=== PATIENT | male | born 1970 | race Caucasian/White ===

== ENCOUNTER 2018-10-22 17:30 | Emergency (ER) | payer OTHER ==
[2018-10-22 17:56] VITALS: BP 130/90
--- NOTE | 2018-10-22 18:40 | ED ---
Upper Extremity Pain - HPI Summary HPI Summary: Patient hit left index finger with a hammer prior to coming here; He has gross deformity and flexion at the left PIP joint after the injury. He reports intact sensation. Pain is 5/10. He has no other complaints. - History of Current Complaint Chief Complaint: UCUpperExtremity Stated Complaint: WC - LT POINTER FINGER INJURY Time Seen by Provider: 10/22/18 18:00 - Allergies/Home Medications Allergies/Adverse Reactions: Allergies Allergy/AdvReac Type Severity Reaction Status Date / Time No Known Allergies Allergy Verified 10/22/18 17:56 Home Medications: Home Medications NK [No Home Medications Reported] 10/22/18 [History Confirmed 10/22/18] PMH/Surg Hx/FS Hx/Imm Hx Infectious Disease History: No Infectious Disease History: Denies: Traveled Outside the [place] in Last 30 Days - Family History Known Family History: Positive: None - Social History Occupation: Employed Full-time Alcohol Use: None Substance Use Type: Reports: None Smoking Status (MU): Never Smoked Tobacco Review of Systems Constitutional: Negative Positive: Other - left index finger trauma All Other Systems Reviewed And Are Negative: Yes Physical Exam Triage Information Reviewed: Yes Vital Signs On Initial Exam: Initial Vitals Temp Pulse Resp BP Pulse Ox 98.6 F 83 16 130/90 100 10/22/18 17:52 10/22/18 17:52 10/22/18 17:52 10/22/18 17:52 10/22/18 17:52 Vital Signs Reviewed: Yes Appearance: Positive: Well-Appearing, No Pain Distress Skin: Positive: Warm, Skin Color Reflects Adequate Perfusion Head/Face: Positive: Normal Head/Face Inspection Eyes: Positive: EOMI, JOANNA ENT: Positive: Normal ENT inspection Neck: Positive: Nontender Respiratory/Lung Sounds: Positive: Clear to Auscultation, Breath Sounds Present Cardiovascular: Positive: RRR. Negative: Murmur Abdomen Description: Negative: Distended Musculoskeletal: Positive: Other - left index finger held in flexion at the MP joint and then deformity and rotation of the proximal phalynx and then flexion at the PIP joint. No breaks in the skin. Neurological: Positive: Sensory/Motor Intact, Alert, Oriented to Person Place, Time, CN Intact II-III Psychiatric: Positive: Normal Diagnostics - Vital Signs Vital Signs Temp Pulse Resp BP Pulse Ox 10/22/18 17:52 98.6 F 83 16 130/90 100 - Laboratory Lab Statement: Any lab studies that have been ordered have been reviewed, and results considered in the medical decision making process. - Radiology left index finger/hand Radiology Interpretation Completed By: ED Physician - fracture displaced of prox phalynx. index finger. Course/Dx - Course Course Of Treatment: transfer center [facility] notified of need for hand surgery consult. Patient offered ambulance but states will drive him. No splint applied due to the finger being held in forced flexion at MP and PIP. He is neuro vasc intact at this point. Did not attempt reduction here due to not able to give digital block on this injury and no sedation here. He may need surgery on this. - Diagnoses Provider Diagnoses: Fracture of proximal phalanx of left index finger, Displaced fracture, Hypertension Discharge - Sign-Out/Discharge Documenting (check all that apply): Patient Departure All imaging exams completed and their final reports reviewed: No - Discharge Plan Condition: Good Disposition: TRANS HIGHER LVL OF CARE FAC Patient Education Materials: Finger Fracture (ED) Referrals: No Primary Care Phys,NOPCP [Primary Care Provider] - Additional Instructions: Please go to the [facility] ER at: [address] [place] [address] Immediately after leaving here to see hand surgery. I have called and notified the transfer center there of your coming to the ER. - Billing Disposition and Condition Condition: GOOD Disposition: Trans Higher Lvl of Care Fac
--- NOTE | 2018-10-23 07:27 | UC ---
- Progress Note Progress Note: xray report left hand : IMPRESSION: Displaced fracture involving the proximal phalanx of the left index finger. Course/Dx - Diagnoses Provider Diagnoses: Fracture of proximal phalanx of left index finger, Displaced fracture, Hypertension Discharge - Sign-Out/Discharge Documenting (check all that apply): Patient Departure All imaging exams completed and their final reports reviewed: Yes - Discharge Plan Condition: Good Disposition: TRANS HIGHER LVL OF CARE FAC Patient Education Materials: Finger Fracture (ED) Referrals: No Primary Care Phys,NOPCP [Primary Care Provider] - Additional Instructions: Please go to the [facility] ER at: [address] [place] [address] Immediately after leaving here to see hand surgery. I have called and notified the transfer center there of your coming to the ER. - Billing Disposition and Condition Condition: GOOD Disposition: Trans Higher Lvl of Care Fac
== END 2018-10-22 18:53 | disposition short-term general hospital (02) ==
LOC: UCCORT 17:30
DX: S62.611A Displaced fracture of proximal phalanx of left index finger, initial encounter for closed fracture (principal); W22.8XXA Striking against or struck by other objects, initial encounter; Y92.9 Unspecified place or not applicable
CPT/HCPCS: 99202; G0463